=== PATIENT | male | born 1970 | race Caucasian/White ===

== ENCOUNTER 2016-07-02 06:03 | Emergency (ER) | payer OTHER ==
[~2016-07-02] VITALS: Ht 180.3 cm; Wt 150.0 kg
[~2016-07-02 06:03] MED LIST: ALBU8.5H2 INHALATION; ALPR2TAB6 PO; ASPI-973 PO; ATOR20TA PO; DEXT30TA12 PO; HYDR25SU31 RC; LISI-609 PO; METO25TA6 PO; NITR30OI5 RC; OMEP20CA11 PO; OXYC-466 PO; PRE20 PO; VENL150C PO
[2016-07-02 06:11] VITALS: BP 127/78; PULSE 78; RESP 16; O2SAT 100
--- NOTE | 2016-07-02 06:29 | ED.REPORT ---
HPI-Abd Pain M 40 and Over Date of Service Jul 02, 2016 ED Provider: Zara Fiore MD The patient is a 45 year old male with history of chronic back pain, coronary artery disease, hyperlipidemia, new-onset diabetes mellitus, and asthma, who presents to the emergency department complaining of worsening abdominal pain. The patient was seen at urgent care for 4 days of LLQ abdominal pain and an outpatient abdominal CT scan was ordered. He was contacted by the urgent care and told that he may have an omental infarction seen on the CT and he is scheduled to see a surgeon on Tuesday. He was told to return for ongoing or worsening symptoms which is why he presents today. He has been taking Percocet 10 mg without any relief. He takes this medication for chronic back pain and normally takes this 5 times daily. He had a bowel movement this morning that was diarrhea. He has also experienced nausea and vomiting. He last ate or drank at 2300 last night. Nursing Notes Stated Complaint: POSSIBLE OMENTAL INFARCTION Chief Complaint: Male Abdominal Pain Nursing Notes Reviewed: Yes Allergies: Coded Allergies: dextromethorphan (Verified Allergy, Unknown, 03/04/16) hydrocodone (Verified Allergy, Unknown, RASH, 03/04/16) pregabalin (Verified Allergy, Unknown, blurred vision, 03/04/16) bupropion (Verified Adverse Reaction, Severe, HTN, muscle cramps, 03/04/16) fluoxetine (Verified Adverse Reaction, Severe, HTN, muscle cramps, 03/04/16 ) Scheduled Albuterol HFA (Proair HFA) 8.5 Gm Hfa.aer.ad 2 PUFFS INHALATION Q4H Alprazolam (Alprazolam) 2 Mg Tablet 1 MG PO TID Alprazolam (Alprazolam) 2 Mg Tablet 2 MG PO HS Aspirin (Aspirin) 81 Mg Tablet 81 MG PO DAILY Atorvastatin (Lipitor) 20 Mg Tablet 40 MG PO HS Dextroamphetamine/Amphetamine (Amphetamine Mixed Salts) 30 Mg Tablet 30 MG PO BID Hydrocortisone Acetate (Anusol-Hc) 25 Mg Supp.rect 25 MG RC BID Lisinopril (Zestril) 5 Mg Tablet 5 MG PO BID Metoprolol Tartrate (Metoprolol Tartrate) 25 Mg Tablet 25 MG PO BID Omeprazole (Omeprazole) 20 Mg Capsule.dr 20 MG PO DAILY Prednisone (PredniSONE) 20 Mg Tablet 20 MG PO DAILY Venlafaxine ER (Effexor XR) 150 Mg Capsule 300 MG PO DAILY Scheduled PRN oxyCODONE-Acetaminophen 10-325 mg (oxyCODONE-Acetaminophen 10-325 mg) 1 Each Tablet 1 TABLET PO Q6H PRN PRN For Pain oxyCODONE-Acetaminophen 10-325 mg (oxyCODONE-Acetaminophen 10-325 mg) 1 Each Tablet 1 TABLET PO Q6H PRN PRN For Pain may use 1-2 extra per day in addition to your scheduled percoset Miscellaneous Medications Nitroglycerin (Rectiv) 30 Gm Oint...g. 30 GM RC General Time Seen by MD: 06:28 Chief Complaint Abdominal pain Hx Obtained From: Patient Arrived By: Walk-in Sudden in Onset?: No Onset Occurred: 6 days ago Symptom Duration: Since onset Progression since Onset: Constant, Gradually worsening Location: : LLQ Quality: Painful, Stabbing Severity: Current: Moderate Severity: Maximum: Severe Recent Healthcare: Recent doctor visit, Prior workup Similar Sx Previous: No Past Medical History 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 Kidney stone Asthma New onset diabetes mellitys Reports: Coronary artery disease, Hyperlipidemia Reports: Morbid Obesity Past Surgical History Knee surgery cardiac stent Family History Sister has heart problems Father's brother had 5 stents placed Smoking History Current Every Day Smoker Social History Alcohol Use: Denies alcohol use Drug Use: Denies drug use Other Social History: Local resident Occupation Not currently employed Ambulatory Status Independent Review of Systems GI: Reports: Abdominal pain, Diarrhea, Nausea, Vomiting Complete sys rev & neg: except as marked. Physical Exam Initial Vital Signs Vital Signs (First) Date Time Temp Pulse Resp B/P Pulse Ox O2 Delivery O2 Flow Rate FiO2 07/02/16 06:11 36.3 78 16 127/78 100 07/02/16 08:58 Room Air Initial VS: Reviewed Head / Eyes: Atraumatic, Normocephalic, PERRL ENT: Mucous membranes moist, Conjunctiva normal, No scleral icterus Neck: Supple, Non-tender, Full range of motion Lymphatic: No lymphadenopathy Extremities: Vascular intact, Neuro intact, No swelling, No tenderness Skin: Warm, Dry, No cyanosis Neurologic: Alert, Oriented, Nonfocal Psychiatric: Mood/affect normal, Behavior normal, Normal thought content General/Constitutional: Awake, Alert Respiratory / Chest: Atraumatic, Breath sounds NL, Breath sounds = bilat, No respiratory distress, No rales, No rhonchi, No wheezing Cardiovascular: Heart rate NL, Regular rhythm, Heart sounds NL, No murmurs, No rubs, Peripheral circulation NL Abdomen: Soft Tenderness/Guarding/Rebound: Positive: Tender LLQ... (Severe), Tender LUQ... ( Moderate) Soft abdomen. There is minimal bowel tones. Palpable 2x3 cm firm area in the LLQ up into the subcutaneous tissues without any erythema that is tender to touch. Back: No midline vertebral tend Interpretation & Diagnostics Lab Results Interpretation Result Diagram: 07/02/16 0645 07/02/16 0645 Test 07/02/16 06:45 07/02/16 07:18 White Blood Count 14.3th/mm3 (3.8-10.1) Red Blood Count 4.76mil/mm3 (4.40-5.80) Hemoglobin 13.3g/dL (13.8-17.2) Hematocrit 40.7% (41.0-50.0) Mean Corpuscular Volume 85.5fL (81-100) Mean Corpuscular Hemoglobin 27.9pg (27.0-35.0) Mean Corpuscular Hemoglobin Concent 32.7% (32.0-37.0) Red Cell Distribution Width 14.2% (12.3-15.4) Platelet Count 269bil/L (150-400) Neutrophils (%) (Auto) 65.2% (40-74) Lymphocytes (%) (Auto) 26.7% (14-46) Monocytes (%) (Auto) 5.8% (4-12) Eosinophils (%) (Auto) 1.7% (0-5) Basophils (%) (Auto) 0.3% (0-3) Sodium Level 140mEq/L (134-144) Potassium Level 4.2mEq/L (3.5-5.2) Chloride Level 102mEq/L (97-108) Carbon Dioxide Level 25mmol/L (18-29) Blood Urea Nitrogen 15mg/dL (6-24) Creatinine 0.73mg/dL (0.76-1.27) Estimat Glomerular Filtration Rate 125mL/min (>59) Glucose Level 137mg/dL (60-99) Lactic Acid Level 1.7mmol/L (0.4-2.0) Calcium Level 8.7mg/dL (8.5-10.1) Magnesium Level 2.5mg/dL (1.6-2.6) Total Bilirubin 0.2mg/dL (0.0-1.2) Aspartate Amino Transf (AST/SGOT) 18U/L (0-50) Alanine Aminotransferase (ALT/SGPT) 23U/L (0-44) Alkaline Phosphatase 100U/L (25-150) Troponin T < 0.010ug/L (0.0-0.011) Total Protein 7.0g/dL (6.4-8.4) Albumin 3.9g/dL (3.4-5.0) Lipase 31U/L (13-60) Urine Color Yellow (YELLOW) Urine Appearance Hazy (CLEAR,HAZY) Urine pH 5.5 (5.0-8.0) Urine Specific [place] 1.030 (1.003-1.035) Urine Protein Negativemg/dL (NEG,TRACE) Urine Glucose (UA) Negativemg/dL (NEGATIVE) Urine Ketones Negativemg/dL (NEGATIVE) Urine Occult Blood Negative (NEGATIVE) Urine Nitrite Negative (NEGATIVE) Urine Bilirubin Negative (NEGATIVE) Urine Urobilinogen Normalmg/dL (NORMAL) Urine Leukocyte Esterase Negative (NEGATIVE) Urine RBC 0-2/hpf (0-2) Urine WBC 0-5/hpf (0-5) Urine Epithelial Cells Occasional/hpf (NONE-MOD) Urine Crystals Oxalic acid crystals (NONE Urine Bacteria None/hpf (NONE-FEW) Urine Hyaline Casts None/lpf (NONE) Urine Granular Casts None seen (NONE SEEN) Urine Waxy Casts None seen (NONE SEEN) Urine Red Blood Cell Casts None seen (NONE SEEN) Urine White Blood Cell Casts None seen (NONE SEEN) Urine Mucus Present (None Seen) Urine Trichomonas None seen (NONE SEEN) Urine Yeast None (NONE SEEN) Urinalysis Comment None Urine Culture Reflexed Not indicated ECG Interpretation ECG Interpretation: Sinus rhythm with a rate of 68 Frequenct PVCs No ischemia Time: 07:16 Interpreted by: ED physician Re-Eval/Medical Decision Source of Hx: Old records Summary of Info: CT ABDOMEN/PELVIS: IMPRESSION: 1. A small round structure with stranding within the subcutaneous fat consistent with fat necrosis. This correlates with the palpable abnormality. 2. Mild colonic diverticulosis. No evidence for active diverticulitis. 3. Small omental infarction in the left anterior abdomen. 4. Hepatic steatosis. Dictated by: Alice Monzon M.D. on 06/30/2016 at 13:34 Time of Eval: 08:40 Re-Evaluation/Progress Note: Dr. Rice is examing the patient. Time of Eval: 09:45 Re-Evaluation/Progress Note: Rechecked the patient. Discussed plan for discharge. All questions were addressed. Consultation #1: Referral / Consult Name: Abram Maddox MD Consulted With: Surgeon Call Returned at: 07:11 [employer]: Agrees with eval, Agrees with plan Note: He suggested not repeating the CT scan and calling Dr. Rice due to recent on-call hour change. Consultation #2: Referral / Consult Name: Clement Rice MD Consulted With: Surgeon Requested Call at: 07:13 Call Returned at: 07:15 [employer]: Will see patient, Agrees with eval, Agrees with plan Consultation #3: Referral / Consult Name: Clement Rice MD Consulted With: Surgeon Call Returned at: 08:53 Note: After evaluating the patient, he does not need an operation at this time. He is okay to be discharged home. Counseled Regarding: Diagnosis, Lab results, Need for follow-up, When/why to return to ED Discharge & Departure Primary Impression: LLQ abdominal pain Additional Impressions: Fat necrosis of abdominal wall Nausea, vomiting, and diarrhea Ruled Out: Diverticulitis, Abdominal abscess Disposition: Home Vital Signs - All Vital Signs Date Time Temp Pulse Resp B/P Pulse Ox O2 Delivery O2 Flow Rate FiO2 07/02/16 10:09 36.3 73 18 130/67 97 Room Air 07/02/16 08:58 73 18 130/67 97 Room Air 07/02/16 06:11 36.3 78 16 127/78 100 )( All Prior VS Reviewed: Yes Condition: Stable Patient Instructions: Acute Abdominal Pain (ED) Additional Instructions: Thank you for entrusting us with your care today. The surgeon does not recommend any surgical intervention at this time. Your labs today are reassuring. There is no sign of diverticulitis or abscess. Continue to use your pain medication as previously prescribed. We have discussed your pain contract. I have prescribed you an extra 10 of your 10mg/ 325 percoset to use for the additional pain from this issue in your belly wall. Drink fluids as tolerated. Followup with your regular doctor if your symptoms continue. Return to the emergency department for any new or concerning symptoms. I hope you feel better soon Referrals: Falguni Lopes (PCP) Kentrell Pugh MD Attestation Portions of this note were transcribed by Lulú Flores. I, Dr. Fiore personally performed the history, physical exam and medical decision-making; I reviewed and confirmed the accuracy of the information in the transcribed note. Signed by: Donovan Carranza, 07/02/2016 and 1005. copies to: Falguni Lopes; Kentrell Pugh MD, Shawna L MD Jul 02, 2016 06:29 Lulú Flores Jul 02, 2016 06:37
[2016-07-02 07:03] LABS: BASOPHILS % (AUTO) 0.3 % (0-3); EOSINOPHILS % (AUTO) 1.7 % (0-5); MONOCYTES % (AUTO) 5.8 % (4-12); Mean Corpuscular Hemoglobin 27.9 pg (27.0-35.0); Mean Corpuscular Volume 85.5 fL (81-100); NEUTROPHILS % (AUTO) 65.2 % (40-74); Platelet Count 269 bil/L (150-400)
[2016-07-02] MEDS ORDERED: 0.9% Sodium Chloride 1,000 ML IV ONE (07:06)
[2016-07-02] MEDS ORDERED: Ondansetron 2 mg/mL 2 mL Inj IVPUSH PRN (07:10)
[2016-07-02] MEDS ORDERED: HYDROmorphone 1 mg/mL Inj IVPUSH ONE (07:10)
[2016-07-02] MEDS: HYDROmorphone 1 mg/mL Inj IVPUSH PRN ×2 (07:17→08:58)
[2016-07-02 07:23] LABS: Magnesium 2.5 mg/dL (1.6-2.6)
[2016-07-02 08:50] LABS: APPEARANCE,URINE HAZY (CLEAR,HAZY); COLOR,URINE YELLOW (YELLOW); OCCULT BLOOD,URINE NEGATIVE (NEGATIVE); PH,URINE 5.5 (5.0-8.0); UROBILINOGEN,URINE NORMAL (NORMAL)
[2016-07-02 08:58] VITALS: BP 130/67; PULSE 73; RESP 18; O2SAT 97
--- NOTE | 2016-07-02 09:25 | CONS ---
[address] [address] CONSULTATION REPORT PATIENT: MYRIAM MOREL : 1970 MR#: [id number] ADMIT: 07/02/2016 JOB ID: [id number] DATE OF SERVICE: 07/02/2016 SURGICAL CONSULTATION: REQUESTED BY: Dr. Zara Fiore HISTORY OF PRESENT ILLNESS: A 45-year-old man with abdominal pain. It has been present for four or five days. Associated symptoms are nausea and diarrhea. He had a CT scan on June 30 after being seen at Urgent Care. This demonstrated a small area of inflammation, possible abdominal wall fat necrosis in the left lower quadrant but also a possible area of omental infarction also in the left lower quadrant. He thinks his pain is increased in severity. He is morbidly obese. He is an everyday smoker. REVIEW OF SYSTEMS: Otherwise negative. PHYSICAL EXAMINATION: He is alert, no distress. BMI 46. Temperature is 36.3, brachial blood pressure 130/67, pulse 73, respiratory rate 18, O2 sat room air 97%. Abdomen obese. He does have some firmness without erythema in the left lower quadrant anterior abdominal wall. He also has vague tenderness on the left abdomen. He has no peritoneal signs. IMAGING: I have personally reviewed the CT scan done on June 30 and also discussed it together with Dr. Emma Masters. LABORATORY RESULTS: White count 14,300, hematocrit is 40.7. Electrolytes are normal. Creatinine 0.73. Glucose 137. Liver function tests are normal. Lactic acid is 1.7. IMPRESSION: 1. Nausea, vomiting, diarrhea. Certainly may have a viral syndrome causing that. I do not see how that is directly related to his abdominal wall or fat necrosis and/or possible omental or appendix epiploica and torsion or infarction. 2. Abdominal wall tenderness, possible fat necrosis. Could be from incidental trauma. Does not need any specific treatment. 3. Possible omental torsion or infarction versus torsion or infarction of an appendix epiploica. Similarly I do not think he needs any surgical intervention. 4. Tobacco abuse. I advised cessation. I discussed this with Dr. Zara Fiore. He does not need surgical intervention. Whether or not he needs hospitalization for hydration for a possible viral gastroenterocolitis, I will leave that decision up to Dr. Fiore. As far as imaging, I do not think he needs additional imaging today, but certainly as always, should he clinically deteriorate, then I would recommend a repeat CT scan abdomen and pelvis.
[2016-07-02] MEDS ORDERED: OXYC-466 PO (10:00)
[2016-07-02 10:09] VITALS: BP 130/67; PULSE 73; RESP 18; O2SAT 97
[2016-08-19] MEDS ORDERED: AMPH30TA3 PO (13:12)
[2016-08-19] MEDS ORDERED: BUSP15TA3 PO (13:12)
[2016-08-19] MEDS ORDERED: GABA-502 PO (13:12)
[2016-08-19] MEDS ORDERED: PROM6.25 PO (13:12)
== END 2016-07-02 10:10 | disposition home or self-care (01) ==
LOC: SED 06:03
DX: R10.32 Left lower quadrant pain (principal); K65.4 Sclerosing mesenteritis; R11.2 Nausea with vomiting, unspecified; R19.7 Diarrhea, unspecified; I25.10 Atherosclerotic heart disease of native coronary artery without angina pectoris; J45.909 Unspecified asthma, uncomplicated; E78.5 Hyperlipidemia, unspecified; E11.9 Type 2 diabetes mellitus without complications; F17.200 Nicotine dependence, unspecified, uncomplicated; Z95.5 Presence of coronary angioplasty implant and graft; Z79.82 Long term (current) use of aspirin; Z88.5 Allergy status to narcotic agent; Z88.8 Allergy status to other drugs, medicaments and biological substances
CPT/HCPCS: 36415; 80053; 81000; 83605; 83690; 83735; 84484; 85025; 93005; 96361; 96374; 96375; 96376; 99285; J1170; J2405; J7030

== ENCOUNTER 2016-07-05 21:11 | Emergency (ER) | payer OTHER ==
[~2016-07-05] VITALS: Ht 180.3 cm; Wt 150.0 kg
[2016-07-05 21:17] VITALS: BP 143/89; PULSE 72; RESP 16; O2SAT 100
--- NOTE | 2016-07-05 23:31 | ED.REPORT ---
HPI-Abd Pain M 40 and Over Date of Service Jul 05, 2016 ED Provider: Narayan Wilson MD Patient is an obese 45 year old male with a history of diabetes mellitus, hypertension, and coronary artery disease who presents to the ED with ongoing abdominal pain for the past week, worse in severity tonight. Patient was first seen in the ED on 07/02 for this complaint. Patient had a CT scan of his abdomen on 06/30/2016 which showed a small area of fat necrosis of the abdominal wall and a small omental infarction in the left anterior abdomen. He was seen by Dr. Rice (surgeon) during this ED visit, who did not believe that he needed surgical intervention. Patient states that it feels like something is twisting and rupturing in his abdomen. Patient reports associated nausea and vomiting, stating that he vomits every time he has something to drink. This is new since he was last seen in the ED. He is on Percocet for pain at home but denies receiving any medication for nausea. He denies constipation and states that he is having normal bowel movements. He is an every smoker Nursing Notes Stated Complaint: STOMACH PAIN Chief Complaint: Male Abdominal Pain Nursing Notes Reviewed: Yes Allergies: Coded Allergies: dextromethorphan (Verified Allergy, Unknown, 07/05/16) hydrocodone (Verified Allergy, Unknown, RASH, 07/05/16) pregabalin (Verified Allergy, Unknown, blurred vision, 07/05/16) bupropion (Verified Adverse Reaction, Severe, HTN, muscle cramps, 07/05/16) fluoxetine (Verified Adverse Reaction, Severe, HTN, muscle cramps, 07/05/16 ) Scheduled Albuterol HFA (Proair HFA) 8.5 Gm Hfa.aer.ad 2 PUFFS INHALATION Q4H Alprazolam (Alprazolam) 2 Mg Tablet 1 MG PO TID Alprazolam (Alprazolam) 2 Mg Tablet 2 MG PO HS Aspirin (Aspirin) 81 Mg Tablet 81 MG PO DAILY Atorvastatin (Lipitor) 20 Mg Tablet 40 MG PO HS Dextroamphetamine/Amphetamine (Amphetamine Mixed Salts) 30 Mg Tablet 30 MG PO BID Hydrocortisone Acetate (Anusol-Hc) 25 Mg Supp.rect 25 MG RC BID Lisinopril (Zestril) 5 Mg Tablet 5 MG PO BID Metoprolol Tartrate (Metoprolol Tartrate) 25 Mg Tablet 25 MG PO BID Omeprazole (Omeprazole) 20 Mg Capsule.dr 20 MG PO DAILY Prednisone (PredniSONE) 20 Mg Tablet 20 MG PO DAILY Venlafaxine ER (Effexor XR) 150 Mg Capsule 300 MG PO DAILY Scheduled PRN Ondansetron ODT (Ondansetron ODT) 8 Mg Tab.rapdis 8 MG PO QID PRN PRN For Nausea oxyCODONE-Acetaminophen 10-325 mg (oxyCODONE-Acetaminophen 10-325 mg) 1 Each Tablet 1 TABLET PO Q6H PRN PRN For Pain oxyCODONE-Acetaminophen 10-325 mg (oxyCODONE-Acetaminophen 10-325 mg) 1 Each Tablet 1 TABLET PO Q6H PRN PRN For Pain may use 1-2 extra per day in addition to your scheduled percoset Miscellaneous Medications Nitroglycerin (Rectiv) 30 Gm Oint...g. 30 GM RC General Time Seen by MD: 23:30 Chief Complaint Abdominal pain, Nausea Hx Obtained From: Patient Arrived By: Walk-in Sudden in Onset?: No Onset Occurred: 1 week ago Symptom Duration: Since onset Progression since Onset: Gradually worsening Location: : Diffuse Quality: Painful Severity: Current: Moderate Severity: Maximum: Severe Recent Healthcare: No recent doctor visit, No recent hospitalization Similar Sx Previous: Yes Past Medical History 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 Kidney stone Asthma omental infarction Reports: Coronary artery disease, Diabetes mellitus, Hyperlipidemia Reports: Morbid Obesity Past Surgical History Knee surgery cardiac stent Family History Sister has heart problems Father's brother had 5 stents placed Smoking History Current Every Day Smoker Social History Alcohol Use: Denies alcohol use Drug Use: Denies drug use Other Social History: Local resident Occupation Not currently employed Ambulatory Status Independent Review of Systems Constitutional: Denies: Chills, Fever GI: Reports: Abdominal pain, Nausea, Vomiting, Denies: Constipation Complete sys rev & neg: except as marked. Physical Exam Initial Vital Signs Vital Signs (First) Date Time Temp Pulse Resp B/P Pulse Ox O2 Delivery O2 Flow Rate FiO2 07/05/16 21:17 36.1 72 16 143/89 100 Room Air Initial VS: Reviewed Head / Eyes: Atraumatic, Normocephalic, PERRL ENT: Conjunctiva normal, No scleral icterus Neck: Supple, Full range of motion Extremities: Vascular intact, Neuro intact Skin: Warm, Dry, No cyanosis Neurologic: Alert, Oriented, Nonfocal Psychiatric: Mood/affect normal, Behavior normal, Normal thought content General/Constitutional: Awake, Alert Appearance / Presentation: Positive: Obese, morbidly Respiratory / Chest: Breath sounds NL, Breath sounds = bilat, No respiratory distress, No rales, No rhonchi, No wheezing Cardiovascular: Heart rate NL, Regular rhythm, No murmurs Abdomen: Soft Tenderness/Guarding/Rebound: Positive: Tender diffuse Bowel Sounds / Distention: Positive: Distention mild Back: Painless range of motion Interpretation & Diagnostics Lab Results Interpretation Result Diagram: 07/06/16 0010 07/06/16 0010 Test 07/06/16 00:10 07/06/16 01:05 White Blood Count 12.2th/mm3 (3.8-10.1) Red Blood Count 4.76mil/mm3 (4.40-5.80) Hemoglobin 13.3g/dL (13.8-17.2) Hematocrit 41.0% (41.0-50.0) Mean Corpuscular Volume 86.1fL (81-100) Mean Corpuscular Hemoglobin 27.9pg (27.0-35.0) Mean Corpuscular Hemoglobin Concent 32.4% (32.0-37.0) Red Cell Distribution Width 14.3% (12.3-15.4) Platelet Count 274bil/L (150-400) Neutrophils (%) (Auto) 64.8% (40-74) Lymphocytes (%) (Auto) 27.4% (14-46) Monocytes (%) (Auto) 5.4% (4-12) Eosinophils (%) (Auto) 2.0% (0-5) Basophils (%) (Auto) 0.2% (0-3) Prothrombin Time 9.8sec (8.1-12.5) Prothromb Time International Ratio 0.92ratio Sodium Level 140mEq/L (134-144) Potassium Level 4.3mEq/L (3.5-5.2) Chloride Level 101mEq/L (97-108) Carbon Dioxide Level 24mmol/L (18-29) Blood Urea Nitrogen 8mg/dL (6-24) Creatinine 0.58mg/dL (0.76-1.27) Estimat Glomerular Filtration Rate 163mL/min (>59) Glucose Level 84mg/dL (60-99) Calcium Level 8.9mg/dL (8.5-10.1) Magnesium Level 2.0mg/dL (1.6-2.6) Total Bilirubin 0.3mg/dL (0.0-1.2) Aspartate Amino Transf (AST/SGOT) 27U/L (0-50) Alanine Aminotransferase (ALT/SGPT) 25U/L (0-44) Alkaline Phosphatase 100U/L (25-150) Total Protein 7.5g/dL (6.4-8.4) Albumin 4.1g/dL (3.4-5.0) Lipase 20U/L (13-60) Hold Gant Top Tube Received (Received) Urine Color Yellow (YELLOW) Urine Appearance Clear (CLEAR,HAZY) Urine pH 6.0 (5.0-8.0) Urine Specific [place] 1.020 (1.003-1.035) Urine Protein Negativemg/dL (NEG,TRACE) Urine Glucose (UA) Negativemg/dL (NEGATIVE) Urine Ketones Tracemg/dL (NEGATIVE) Urine Occult Blood Negative (NEGATIVE) Urine Nitrite Negative (NEGATIVE) Urine Bilirubin Negative (NEGATIVE) Urine Urobilinogen Normalmg/dL (NORMAL) Urine Leukocyte Esterase Negative (NEGATIVE) Urine RBC 0-2/hpf (0-2) Urine WBC 0-5/hpf (0-5) Urine Epithelial Cells Few/hpf (NONE-MOD) Urine Crystals None seen (NONE SEEN) Urine Bacteria .f/hpf (NONE-FEW) Urine Hyaline Casts None/lpf (NONE) Urine Granular Casts None seen (NONE SEEN) Urine Waxy Casts None seen (NONE SEEN) Urine Red Blood Cell Casts None seen (NONE SEEN) Urine White Blood Cell Casts None seen (NONE SEEN) Urine Mucus Present (None Seen) Urine Trichomonas None seen (NONE SEEN) Urine Yeast None (NONE SEEN) Urinalysis Comment None Urine Culture Reflexed Not indicated Re-Eval/Medical Decision Med Decision/Clinical Course 45-year-old smoker with known coronary disease, presents with an apparent torsed epiploic appendage and possibly some abdominal wall fat necrosis. He has no particularly new symptoms to suggest developing intra-abdominal disaster. His exam is benign. Nausea continues and is controlled with Zofran here. He is discharged for continuation of his current pain meds. No indication for repeat imaging after images done just a few days ago. He is discharged in stable condition for follow-up with his PCP. Source of Hx: Old records Time of Eval: 01:55 Patient Status: Condition improved, Drinking well without N/V Re-Evaluation/Progress Note: Rechecked the patient, who states that is nausea is improved. Discussed the results of his labs. Patient understands and agrees with the plan to be discharged home. Discharge instructions and follow-up discussed. All questions were addressed. Return to the ED warnings given. Counseled Regarding: Diagnosis, Lab results, Need for follow-up, When/why to return to ED Discharge & Departure Primary Impression: Nausea and vomiting Vomiting type: unspecified Vomiting Intractability: non-intractable Qualified Code: R11.2 - Nausea with vomiting, unspecified Additional Impressions: Generalized abdominal pain Fat necrosis of abdominal wall Infarcted appendices epiploicae Disposition: Home Vital Signs - All Vital Signs Date Time Temp Pulse Resp B/P Pulse Ox O2 Delivery O2 Flow Rate FiO2 07/06/16 03:26 36.8 82 16 150/68 96 Room Air 07/06/16 01:05 85 17 130/69 98 Room Air 07/05/16 21:17 36.1 72 16 143/89 100 Room Air )( All Prior VS Reviewed: Yes Condition: Stable Patient Instructions: Acute Nausea and Vomiting (ED) Additional Instructions: His labs are improving. The arvizu issue is his nausea and vomiting. Ondansetron up to four times daily control that. Clear fluids to start with, and advance only slowly as tolerated to a regular diet. Referrals: Falguni Lopes (PCP) Donovan Attestation Portions of this note were transcribed by Shasta Allen. I, Dr. Wilson personally performed the history, physical exam and medical decision-making; I reviewed and confirmed the accuracy of the information in the transcribed note. Signed by: Donovan Alarcon, 07/06/2016 0338 copies to: Falguni Lopes Christopher W MD Jul 05, 2016 23:31 Shasta Allen Jul 05, 2016 23:44
[2016-07-05] MEDS ORDERED: Ondansetron 2 mg/mL 2 mL Inj IVPUSH ONE (23:40)
[2016-07-05] MEDS ORDERED: 0.9% Sodium Chloride 1,000 ML IV ONE (23:40)
[2016-07-05] MEDS ORDERED: Pantoprazole 4 mg/mL 10 mL Inj IVPUSH ONE (23:40)
[2016-07-06 00:40] LABS: BASOPHILS % (AUTO) 0.2 % (0-3); MONOCYTES % (AUTO) 5.4 % (4-12); Mean Corpuscular Hemoglobin 27.9 pg (27.0-35.0); Mean Corpuscular Volume 86.1 fL (81-100); NEUTROPHILS % (AUTO) 64.8 % (40-74); Platelet Count 274 bil/L (150-400)
[2016-07-06 00:42] LABS: INR 0.92 ratio
[2016-07-06 01:05] VITALS: BP 130/69; PULSE 85; RESP 17; O2SAT 98
[2016-07-06 01:40] LABS: APPEARANCE,URINE CLEAR (CLEAR,HAZY); COLOR,URINE YELLOW (YELLOW); OCCULT BLOOD,URINE NEGATIVE (NEGATIVE); UROBILINOGEN,URINE NORMAL (NORMAL)
[2016-07-06] MEDS ORDERED: _Ondansetron ODT 4 mg Tablet PO PRN (02:00)
[2016-07-06] MEDS ORDERED: ONDA8TAB10 PO (02:00)
[2016-07-06 03:26] VITALS: BP 150/68; PULSE 82; RESP 16; O2SAT 96
[2016-08-19] MEDS ORDERED: AMPH30TA3 PO (13:12)
[2016-08-19] MEDS ORDERED: BUSP15TA3 PO (13:12)
[2016-08-19] MEDS ORDERED: GABA-502 PO (13:12)
[2016-08-19] MEDS ORDERED: PROM6.25 PO (13:12)
== END 2016-07-06 03:30 | disposition home or self-care (01) ==
LOC: SED 21:11
DX: K55.069 Acute infarction of intestine, part and extent unspecified (principal); K65.4 Sclerosing mesenteritis; R11.2 Nausea with vomiting, unspecified; R10.84 Generalized abdominal pain; E11.9 Type 2 diabetes mellitus without complications; I10 Essential (primary) hypertension; I25.10 Atherosclerotic heart disease of native coronary artery without angina pectoris; E66.01 Morbid (severe) obesity due to excess calories; J45.909 Unspecified asthma, uncomplicated; F17.200 Nicotine dependence, unspecified, uncomplicated; Z68.42 Body mass index [BMI] 45.0-49.9, adult; Z87.442 Personal history of urinary calculi; Z95.818 Presence of other cardiac implants and grafts; Z88.8 Allergy status to other drugs, medicaments and biological substances; Z88.5 Allergy status to narcotic agent
CPT/HCPCS: 36415; 80053; 81000; 83690; 83735; 85025; 85610; 96361; 96374; 96375; 99285; J2405; J7030

== ENCOUNTER 2016-08-02 18:53 | Emergency (ER) | payer OTHER ==
[~2016-08-02] VITALS: Ht 180.3 cm; Wt 147.7 kg
[~2016-08-02 18:53] MED LIST changes: +ONDA8TAB10 PO
[2016-08-02 19:20] VITALS: BP 130/81; PULSE 66; RESP 16; O2SAT 98
[2016-08-02 20:16] LABS: BASOPHILS % (AUTO) 0.3 % (0-3); EOSINOPHILS % (AUTO) 1.8 % (0-5); MONOCYTES % (AUTO) 5.6 % (4-12); Mean Corpuscular Hemoglobin 27.4 pg (27.0-35.0); Mean Corpuscular Volume 84.5 fL (81-100); NEUTROPHILS % (AUTO) 63.3 % (40-74); Platelet Count 265 bil/L (150-400)
[2016-08-02 20:59] LABS: Magnesium 1.8 mg/dL (1.6-2.6)
[2016-08-02 22:42] LABS: APPEARANCE,URINE HAZY (CLEAR,HAZY); COLOR,URINE DARK YELLOW (YELLOW); OCCULT BLOOD,URINE NEGATIVE (NEGATIVE); PH,URINE 5.5 (5.0-8.0); UROBILINOGEN,URINE NORMAL (NORMAL)
--- NOTE | 2016-08-02 23:08 | ED.REPORT ---
HPI-Abd Pain F 40 and Over Date of Service Aug 02, 2016 ED Provider: Cristobal Daugherty MD Patient is an obese 45 year old male with a history of diabetes mellitus, kidney stones, hypertension, coronary artery disease with stenting, and possible omental infarction who presents to the ED complaining of severe abdominal pain that began yesterday. Patient states that his pain begins at his umbilicus and extends to his upper abdomen. Patient states that the pain worsens whenever he tries to move, stand, or ambulate. His pain is worse with deep breathing. He states that standing up causes him to double over in pain. His pain is improved with sitting or laying down. Patient has not previously had any abdominal surgeries. Patient was seen in the ED on 07/02/2016 for abdominal pain, with the finding of possible fat necrosis on CT scan. There was also evidence of possible omental torsion or infarction versus torsion or infarction of an appendix epiploica. Patient was evaluated by Dr. Rice ( surgery) who did not see any indication for surgical intervention. He states that his previous pain was localized to his LLQ and is different from what he is currently experiencing. Patient reports recently losing 30 lbs and states that he is making an effort to lose weight. He denies fever, nausea, vomiting, or diarrhea. Nursing Notes Stated Complaint: ABDOMINAL PAIN Chief Complaint: Male Abdominal Pain Nursing Notes Reviewed: Yes Allergies: Coded Allergies: dextromethorphan (Verified Allergy, Unknown, 08/02/16) hydrocodone (Verified Allergy, Unknown, RASH, 08/02/16) pregabalin (Verified Allergy, Unknown, blurred vision, 08/02/16) bupropion (Verified Adverse Reaction, Severe, HTN, muscle cramps, 08/02/16) fluoxetine (Verified Adverse Reaction, Severe, HTN, muscle cramps, 08/02/16 ) Scheduled Albuterol HFA (Proair HFA) 8.5 Gm Hfa.aer.ad 2 PUFFS INHALATION Q4H Alprazolam (Alprazolam) 2 Mg Tablet 1 MG PO TID Alprazolam (Alprazolam) 2 Mg Tablet 2 MG PO HS Aspirin (Aspirin) 81 Mg Tablet 81 MG PO DAILY Atorvastatin (Lipitor) 20 Mg Tablet 40 MG PO HS Dextroamphetamine/Amphetamine (Amphetamine Mixed Salts) 30 Mg Tablet 30 MG PO BID Hydrocortisone Acetate (Anusol-Hc) 25 Mg Supp.rect 25 MG RC BID Lisinopril (Zestril) 5 Mg Tablet 5 MG PO BID Metoprolol Tartrate (Metoprolol Tartrate) 25 Mg Tablet 25 MG PO BID Omeprazole (Omeprazole) 20 Mg Capsule.dr 20 MG PO DAILY Prednisone (PredniSONE) 20 Mg Tablet 20 MG PO DAILY Venlafaxine ER (Effexor XR) 150 Mg Capsule 300 MG PO DAILY Scheduled PRN Ondansetron ODT (Ondansetron ODT) 8 Mg Tab.rapdis 8 MG PO QID PRN PRN For Nausea oxyCODONE-Acetaminophen 10-325 mg (oxyCODONE-Acetaminophen 10-325 mg) 1 Each Tablet 1 TABLET PO Q6H PRN PRN For Pain oxyCODONE-Acetaminophen 10-325 mg (oxyCODONE-Acetaminophen 10-325 mg) 1 Each Tablet 1 TABLET PO Q6H PRN PRN For Pain may use 1-2 extra per day in addition to your scheduled percoset Miscellaneous Medications Nitroglycerin (Rectiv) 30 Gm Oint...g. 30 GM RC General Time Seen by MD: 23:06 Chief Complaint Abdominal pain Hx Obtained From: Patient Arrived By: Walk-in Sudden in Onset?: No Onset Occurred: Yesterday Symptom Duration: Since onset Progression since Onset: Waxes and wanes Location: : Abdomen upper: Periumbilical Quality: Painful, Stabbing Severity: Current: Moderate Severity: Maximum: Severe Recent Healthcare: No recent doctor visit, No recent hospitalization Similar Sx Previous: Yes Past Medical History Past Medical History Notes: CT Scan 07/02/2016 : Possible fat necrosis on CT scan. There was also evidence of possible omental torsion or infarction versus torsion or infarction of an appendix epiploica. 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 Kidney stone Asthma Reports: Coronary artery disease, Diabetes mellitus, Hyperlipidemia Reports: Morbid Obesity Past Surgical History Knee surgery cardiac stent Family History Sister has heart problems Father's brother had 5 stents placed Smoking History Current Every Day Smoker Social History Alcohol Use: Denies alcohol use Drug Use: Denies drug use Other Social History: Local resident Occupation Not currently employed Ambulatory Status Independent Review of Systems Constitutional: Denies: Chills, Fever GI: Reports: Abdominal pain, Denies: Diarrhea, Nausea, Vomiting Complete sys rev & neg: except as marked. Physical Exam Vital Signs Vital Signs (First) Date Time Temp Pulse Resp B/P Pulse Ox O2 Delivery O2 Flow Rate FiO2 08/02/16 19:20 36.4 66 16 130/81 98 08/03/16 04:20 Room Air Initial VS: Reviewed, Vital signs normal Head / Eyes: Atraumatic, Normocephalic, PERRL ENT: Mucous membranes moist, Conjunctiva normal, No scleral icterus Neck: Supple, Full range of motion Extremities: Vascular intact, Neuro intact Skin: Warm, Dry, No cyanosis Neurologic: Alert, Oriented, Nonfocal Psychiatric: Mood/affect normal, Behavior normal, Normal thought content General/Constitutional: Awake, Alert, Well hydrated Appearance / Presentation: Positive: Obese, morbidly Respiratory / Chest: Breath sounds NL, Breath sounds = bilat, No respiratory distress, No rales, No rhonchi, No wheezing Cardiovascular: Heart rate NL, Regular rhythm, Heart sounds NL, No murmurs Abdomen: Soft Tenderness/Guarding/Rebound: Positive: Tender epigastric (and pain above the umbiliacus, with peritoneal signs) Back: Atraumatic, No CVA tenderness Skin: Color NL, Warm, Dry Color / Condition: Negative: Diaphoresis present Interpretation & Diagnostics Lab Results Interpretation Result Diagram: 08/02/16200708/02/16 2008 Test 08/02/16 20:08 08/02/16 22:31 08/03/16 01:20 White Blood Count 11.9th/mm3 (3.8-10.1) Red Blood Count 4.89mil/mm3 (4.40-5.80) Hemoglobin 13.4g/dL (13.8-17.2) Hematocrit 41.3% (41.0-50.0) Mean Corpuscular Volume 84.5fL (81-100) Mean Corpuscular Hemoglobin 27.4pg (27.0-35.0) Mean Corpuscular Hemoglobin Concent 32.4% (32.0-37.0) Red Cell Distribution Width 14.1% (12.3-15.4) Platelet Count 265bil/L (150-400) Neutrophils (%) (Auto) 63.3% (40-74) Lymphocytes (%) (Auto) 28.7% (14-46) Monocytes (%) (Auto) 5.6% (4-12) Eosinophils (%) (Auto) 1.8% (0-5) Basophils (%) (Auto) 0.3% (0-3) Sodium Level 140mEq/L (134-144) Potassium Level 4.2mEq/L (3.5-5.2) Chloride Level 101mEq/L (97-108) Carbon Dioxide Level 25mmol/L (18-29) Blood Urea Nitrogen 10mg/dL (6-24) Creatinine 0.64mg/dL (0.76-1.27) Estimat Glomerular Filtration Rate 145mL/min (>59) Glucose Level 93mg/dL (60-99) Calcium Level 9.1mg/dL (8.5-10.1) Magnesium Level 1.8mg/dL (1.6-2.6) Total Bilirubin 0.4mg/dL (0.0-1.2) Aspartate Amino Transf (AST/SGOT) 20U/L (0-50) Alanine Aminotransferase (ALT/SGPT) 25U/L (0-44) Alkaline Phosphatase 101U/L (25-150) Total Protein 7.3g/dL (6.4-8.4) Albumin 3.9g/dL (3.4-5.0) Lipase 21U/L (13-60) Hold Gant Top Tube Received (Received) Urine Color Dark yellow (YELLOW) Urine Appearance Hazy (CLEAR,HAZY) Urine pH 5.5 (5.0-8.0) Urine Specific [place] 1.030 (1.003-1.035) Urine Protein Negativemg/dL (NEG,TRACE) Urine Glucose (UA) Negativemg/dL (NEGATIVE) Urine Ketones Negativemg/dL (NEGATIVE) Urine Occult Blood Negative (NEGATIVE) Urine Nitrite Negative (NEGATIVE) Urine Bilirubin Negative (NEGATIVE) Urine Urobilinogen Normalmg/dL (NORMAL) Urine Leukocyte Esterase Negative (NEGATIVE) Urine RBC 0-2/hpf (0-2) Urine WBC 0-5/hpf (0-5) Urine Epithelial Cells Few/hpf (NONE-MOD) Urine Crystals Amorphous urates (NONE Urine Bacteria Few/hpf (NONE-FEW) Urine Hyaline Casts None/lpf (NONE) Urine Granular Casts None seen (NONE SEEN) Urine Waxy Casts None seen (NONE SEEN) Urine Red Blood Cell Casts None seen (NONE SEEN) Urine White Blood Cell Casts None seen (NONE SEEN) Urine Mucus Present (None Seen) Urine Trichomonas None seen (NONE SEEN) Urine Yeast None (NONE SEEN) Urinalysis Comment None Urine Culture Reflexed Not indicated Troponin T 0.010ug/L (0.0-0.011) Lab values outside NL range: no clinical significance. Lab Results Interpretation: Trop neg, mild elev WBC ECG Interpretation ECG Interpretation: NSR, Rate 66 multiple premature complexes Time: :28 Interpreted by: ED physician Normal ECG Interpretation: No acute ischemic changes, No change from prior ECGs CT Abd / Pelvis Interpretation CONCLUSION: No specific acute or active process. Trace of free fluid in the pelvis. This is an abnormal finding and may need followup throughout a progressive abnormality. Minimal diverticulosis without evidence of diverticulitis. Radiologist: Buddy Lawler MD 08/03/2016 - 12:03:38 AM PST Study type: Abdominal CT IV contrast Interpretation / Wet Read by: Interpret - Radiologist Re-Eval/Medical Decision Med Decision/Clinical Course 45-year-old male with a history of coronary artery disease and a recent omental infarction presents with abdominal pain. Labs are unremarkable. CT scan of the abdomen and pelvis with IV contrast showed no abnormalities other than a slight amount of free fluid in the pelvis. No definite source of his abdominal pain was found that on physical exam it certainly seems to be muscular/ abdominal wall in origin. He is being discharged home with pain management. I do not suspect serious or surgical illness at this time. Source of Hx: Old records Re-Evaluation/Progress : Time of Eval: 01:11 Patient Status: Condition improved Re-Evaluation/Progress Note: Rechecked the patient to discuss the results of his CT scan. No acute problem identified. His labs were normal. His pain is likely muscular in nature. He admits to taking Omeprazole once daily. Patient understands and agrees with the plan to be discharged home. Discharge instructions and follow-up discussed. All questions were addressed. Return to the ED warnings given. Counseled Regarding: Diagnosis, Lab results, Need for follow-up, When/why to return to ED Discharge & Departure Primary Impression: Abdominal pain Abdominal location: upper abdomen Qualified Code: R10.10 - Upper abdominal pain, unspecified Disposition: Home Discharge Condition All VS Reviewed: Yes Condition: Stable Patient Instructions: Acute Abdominal Pain (ED) Additional Instructions: There is no significant abnormality seen on the CT scan to explain the pain. There still remains a small amount of fluid in the pelvis probably from the previous omental infarction. There is no evidence of heart disease. I suspect that your pain is due to an abdominal wall injury from the physical exam and the pain with movement. Suggest that you take the omeprazole twice a day for a week. Follow-up with your primary doctor in 2 or 3 days if the pain persists. Referrals: Falguni Lopes (PCP) Scribe Attestation Portions of this note were transcribed by Shasta Allen. I, Dr. Daugherty personally performed the history, physical exam and medical decision-making; I reviewed and confirmed the accuracy of the information in the transcribed note. Signed by: Donovan Alarcon, 08/03/2016 0428 copies to: Falguni Lopes Howard L MD Aug 02, 2016 23:07 Shasta Allen Aug 02, 2016 23:21
[2016-08-02] MEDS ORDERED: 0.9% Sodium Chloride 1,000 ML IV ONE (23:14)
[2016-08-02] MEDS ORDERED: Ondansetron 2 mg/mL 2 mL Inj IV PRN (23:15)
[2016-08-02] MEDS: HYDROmorphone 0.5 mg/0.5 mL iSecure Syringe IVPUSH PRN (23:29)
[2016-08-03] MEDS: HYDROmorphone 0.5 mg/0.5 mL iSecure Syringe IVPUSH PRN (01:21)
[2016-08-03 04:20] VITALS: BP 132/68; PULSE 76; RESP 18; O2SAT 96
--- NOTE | 2016-08-03 08:51 | DRSVH ---
PROCEDURE: CT ABDOMEN AND PELVIS WITH CONTRAST ([id number]) INDICATIONS: upper abd pain, hx of omental infarction TECHNIQUE: After the administration of intravenous contrast, 5 mm thick sections acquired from the diaphragm to the symphysis. 5 mm coronal and sagittal reformats were acquired. For radiation dose reduction, the following was used: automated exposure control, adjustment of mA and/or kV according to patient shawna garcia. COMPARISON: [facility], CT, CT ABD PELVIS W CON, 06/30/2016, 12:44. FINDINGS: Image quality: Excellent. ABDOMEN: Lung bases: Lung bases are clear. Minimal dependent atelectasis/scarring in the dependent left lung base. Heart size is normal. Subcentimeter left basilar calcified granuloma Solid organs: Liver and spleen are normal in size and enhancement. Gallbladder is unremarkable. Bi liary system is non dilated. Pancreas enhances normally. No adrenal nodules. Kidneys demonstrate n ormal size and enhancement, without hydronephrosis. Peritoneum and bowel: Bowel loops demonstrate normal wall thickness and caliber. No free fluid or a ir. Scattered incidental colonic diverticula. The rectum is decompressed and otherwise unremarkable. Appendix normal Nodes and vessels: No retroperitoneal or mesenteric adenopathy by size criteria. Aorta and inferior vena cava are normal in size. Miscellaneous: No ventral hernias. PELVIS: Genitourinary: The bladder decompressed therefore unremarkable. Miscellaneous: No adenopathy by size criteria. Trace pelvic fluid. Bones: Presumed vertebral body bone island measuring 4 mm on image 50 although technically nonspecifi c finding. IMPRESSION: No acute abnormality identified. Incidentally noted colonic diverticulosis without evidence of acute diverticulitis. Trace pelvic free fluid, nonspecific finding. Please correlate clinically Dictated by: Lebron Bermeo M.D. on 08/03/2016 at 8:43 Approved by: Lebron Bermeo M.D. on 08/03/2016 at 8:49
[2016-08-19] MEDS ORDERED: BUSP15TA3 PO (13:12)
[2016-08-19] MEDS ORDERED: GABA-502 PO (13:12)
[2016-08-19] MEDS ORDERED: AMPH30TA3 PO (13:12)
[2016-08-19] MEDS ORDERED: PROM6.25 PO (13:12)
== END 2016-08-03 02:35 | disposition home or self-care (01) ==
LOC: SED 18:53
DX: R10.10 Upper abdominal pain, unspecified (principal); I25.10 Atherosclerotic heart disease of native coronary artery without angina pectoris; E11.9 Type 2 diabetes mellitus without complications; E78.5 Hyperlipidemia, unspecified; K55.069 Acute infarction of intestine, part and extent unspecified; F17.210 Nicotine dependence, cigarettes, uncomplicated; Z95.5 Presence of coronary angioplasty implant and graft; Z87.442 Personal history of urinary calculi; Z79.82 Long term (current) use of aspirin; Z79.52 Long term (current) use of systemic steroids; Z79.51 Long term (current) use of inhaled steroids; Z88.5 Allergy status to narcotic agent; Z88.8 Allergy status to other drugs, medicaments and biological substances
CPT/HCPCS: 36415; 74177; 80053; 81000; 81002; 83690; 83735; 84484; 85025; 93005; 96361; 96374; 96375; 96376; 99285; G0463; J1170; J2405; J7030; Q9967

== ENCOUNTER 2016-08-20 10:29 | Day surgery (SDC) | payer OTHER ==
[~2016-08-20] VITALS: Ht 180.3 cm; Wt 147.0 kg
[~2016-08-20 10:29] MED LIST changes: +AMPH30TA3 PO; +BUSP15TA3 PO; +GABA-502 PO; +PROM6.25 PO
[2016-08-20] MEDS ORDERED: Iohexol 240 mg/mL 10 mL Inj ONE (10:30)
[2016-08-20] MEDS ORDERED: Bupivacaine-MPF 0.25% 30 mL Inj ONE (10:30)
[2016-08-20 10:38] VITALS: BP 146/80; PULSE 72; RESP 14; O2SAT 99
--- NOTE | 2016-08-20 11:31 | PCM.PROC ---
Procedure Note Date of Service: Aug 20, 2016 Pre Procedure Diagnosis: PROCEDURE: Diagnostic medial branch block of the Lumbar facet joints RIGHT L3-L4 , L4-L5, L5-S1. 1st injection. 0.25% bupivacaine PRE-PROCEDURE DIAGNOSIS: Lumbar spondylosis POST-PROCEDURE DIAGNOSIS: same INDICATION: 46-year-old gentleman with greater than 3 months of moderate to severe axial LBP, refractory to conservative management, including NSAIDS and PT. PERFORMED BY: Kentrell Pugh MD DESCRIPTION OF PROCEDURE: Patient was met in the holding area. Consent was signed, site was confirmed and all questions were answered. Patient was taken to the procedure suite and placed prone on the procedure table. At each level, the vertebral endplates were used to optimize fluoroscopic position. Local anesthesia was attained with 1% lidocaine. The image intensifier was then rotated ipsilaterally to optimize the "[place] dog" position. A 25-gauge Quincke spinal needle was advanced towards the junction of the SAP and transverse process at each level. Proper positioning was confirmed in both the AP and lateral views. 0.5 cc of radiopaque contrast was injected to confirm proper position followed by an injection underlying fluoroscopy to minimize the chance of inadvertent vascular uptake. For the L5-[id number] joint the final position was the junction of the sacral ala and the S1 superior articulating process After proper positioning was confirmed, 0.5 cc of local anesthetic was injected at each level. ANESTHESIA: Local. EBL: None. No Blood Products Used COMPLICATIONS: None SPECIMENS: None POST-PROCEDURE DISPOSITION: Patient tolerated the procedure well and was returned to the holding area in stable condition. They were discharged home when all discharge criteria were met. DISCHARGE MEDICATIONS: None FOLLOW UP: Pain diary, Return to discuss Kentrell Pugh MD * Pain Management * Anesthesiology .ED: Y: Patient given care and follow up instructions Kentrell Pugh MD Aug 20, 2016 11:30
== END 2016-08-20 23:59 | disposition home or self-care (01) ==
LOC: END 10:29
PROVIDERS: ATTEND Anesthesiology Pain Medicine
DX: M47.896 Other spondylosis, lumbar region (principal)

== ENCOUNTER 2016-11-26 10:10 | Day surgery (SDC) | payer MEDICARE, MEDICAID ==
[~2016-11-26] VITALS: Ht 180.3 cm; Wt 147.4 kg
[~2016-11-26 10:10] MED LIST changes: -ALPR2TAB6 PO; -BUSP15TA3 PO; -DEXT30TA12 PO; -HYDR25SU31 RC; -NITR30OI5 RC; -OMEP20CA11 PO; -ONDA8TAB10 PO; -PROM6.25 PO; +TRAZ-115 PO
[2016-11-26] MEDS ORDERED: Iohexol 240 mg/mL 10 mL Inj ONE (10:11)
[2016-11-26] MEDS ORDERED: Lidocaine PF 2% 10 mL Inj ONE (10:11)
[2016-11-26] MEDS ORDERED: ZLP10T PO (10:17)
[2016-11-26] MEDS ORDERED: METF500T4 PO (10:19)
[2016-11-26 10:23] VITALS: BP 131/81; PULSE 72; RESP 16; O2SAT 96
--- NOTE | 2016-11-26 15:46 | PCM.PROC ---
Procedure Note Date of Service: Nov 26, 2016 Pre Procedure Diagnosis: PROCEDURE: Diagnostic medial branch block of the Lumbar facet joints RIGHT L3-L4 , L4-L5, L5-S1. Second injection. 2% lidocaine. PRE-PROCEDURE DIAGNOSIS: Lumbar spondylosis POST-PROCEDURE DIAGNOSIS: same INDICATION: A 46-year-old patient with greater than 3 months of moderate to severe axial LBP, refractory to conservative management, including NSAIDS and PT. PERFORMED BY: Kentrell Pugh MD DESCRIPTION OF PROCEDURE: Patient was met in the holding area. Consent was signed, site was confirmed and all questions were answered. Patient was taken to the procedure suite and placed prone on the procedure table. At each level, the vertebral endplates were used to optimize fluoroscopic position. Local anesthesia was attained with 1% lidocaine. The image intensifier was then rotated ipsilaterally to optimize the "[place] dog" position. A 25-gauge Quincke spinal needle was advanced towards the junction of the SAP and transverse process at each level. Proper positioning was confirmed in both the AP and lateral views. 0.5 cc of radiopaque contrast was injected to confirm proper position followed by an injection underlying fluoroscopy to minimize the chance of inadvertent vascular uptake. For the L5-O2heods joint the final position was the junction of the sacral ala and the S1 superior articulating process After proper positioning was confirmed, 0.5 cc of local anesthetic was injected at each level. ANESTHESIA: Local. EBL: None. No Blood Products Used COMPLICATIONS: None SPECIMENS: None POST-PROCEDURE DISPOSITION: Patient tolerated the procedure well and was returned to the holding area in stable condition. They were discharged home when all discharge criteria were met. DISCHARGE MEDICATIONS: None FOLLOW UP: Pain diary, Return to discuss Kentrell Pugh MD * Pain Management * Anesthesiology .ED: Y: Patient given care and follow up instructions Kentrell Pugh MD Nov 26, 2016 15:46
== END 2016-11-26 23:59 | disposition home or self-care (01) ==
LOC: END 10:10
PROVIDERS: ATTEND Anesthesiology Pain Medicine
DX: M47.896 Other spondylosis, lumbar region (principal); I10 Essential (primary) hypertension; I25.10 Atherosclerotic heart disease of native coronary artery without angina pectoris; E11.9 Type 2 diabetes mellitus without complications; J45.909 Unspecified asthma, uncomplicated; G47.33 Obstructive sleep apnea (adult) (pediatric); E78.5 Hyperlipidemia, unspecified; E03.9 Hypothyroidism, unspecified; K21.9 Gastro-esophageal reflux disease without esophagitis; F98.8 Other specified behavioral and emotional disorders with onset usually occurring in childhood and adolescence; F17.210 Nicotine dependence, cigarettes, uncomplicated; E66.01 Morbid (severe) obesity due to excess calories; Z95.5 Presence of coronary angioplasty implant and graft; Z79.82 Long term (current) use of aspirin; Z79.84 Long term (current) use of oral hypoglycemic drugs; Z68.42 Body mass index [BMI] 45.0-49.9, adult